=== PATIENT | male | born 1950 | race Caucasian/White ===

== ENCOUNTER → 2022-05-27 | Outpatient (CLI) | payer OTHER ==
--- NOTE | 2022-05-27 15:31 | MR ---
EXAMINATION TYPE: MR cspine/lspine wo con DATE OF EXAM: 05/27/2022 12:53 PM CLINICAL INDICATION:Male, 71 years old with history of G95.9 M54.16; COMPARISON: Radiographs 05/04/2022 TECHNIQUE: Multi planar, multi sequence imaging was performed utilizing: T1-weighted, T2-weighted, a nd turbo inversion recovery imaging of the cervical and lumbar spine. MR contrast: IV Contrast: None. FINDINGS: CERVICAL: Alignment: The cervical vertebral bodies have preserved heights. Alignment is within normal limits gi alisa patient positioning. Bones: Bone signal is within normal limits. Multilevel degenerative disc disease is noted and most p ronounced at the vertebral levels. Cord: The spinal cord is unremarkable with regards to their signal intensity and morphology. Discs: Multilevel disc desiccation is present. C2-C3: No significant disc pathology. The spinal canal is patent. No neural foraminal stenosis. C3-C4: No significant disc pathology. The spinal canal is patent. Bilateral facet and uncovertebral joint arthropathy are present with mild to moderate left an mild right neural foraminal stenosis. C4-C5: A disc osteophyte complex is present which minimally narrows the ventral subarachnoid space. Bilateral facet and uncovertebral joint arthropathy are present with severe left and mild right neur al foraminal stenosis. C5-C6: A disc osteophyte complex is present with mild to moderate spinal canal stenosis. Bilateral f acet and uncovertebral joint arthropathy are present with moderate bilateral neural foraminal stenosi s. C6-C7: Right central/foraminal disc protrusion or disc osteophyte complex with facet joint arthropath y which abuts the spinal cord on the right. Bilateral facet and uncovertebral joint arthropathy are present with moderate to severe right neural foraminal stenosis. The left neural foramen is patent. C7-T1: No significant disc pathology. The spinal canal is patent. No neural foraminal stenosis. Other: The coastal thickening in the left maxillary sinus. The lingual tonsils are enlarged. LUMBAR: Alignment: The lumbar vertebral bodies have preserved heights. There is straightening of the lumbar a lignment. Cord: The conus medullaris and the distal spinal cord appear unremarkable with regards to their signa l intensity and morphology. Bones/Discs: Scattered Modic endplate changes are noted throughout the lumbar spine. Multilevel dege nerative disc disease is noted and most pronounced at the L3-L4 and L4-L5. Multilevel disc desiccatio n is present. T12-L1 L1-L2: Disc bulging, ligamentum flavum buckling and facet joint arthropathy with mild spinal canal an d mild bilateral neural foraminal stenosis. L2-L3: Disc bulging with facet joint arthropathy with mild spinal canal and mild bilateral neural for aminal stenosis. L3-L4: Disc bulging with facet joint arthropathy with mild spinal canal and mild bilateral neural for aminal stenosis. L4-L5: Disc bulge, ligamentum flavum buckling with facet joint arthropathy and osteophyte formation r esult in severe spinal canal stenosis and severe bilateral neural foraminal stenosis. The cauda equin a is bunched together at this level. L5-S1: Disc bulge without significant spinal canal stenosis there is facet joint arthropathy with mil d bilateral neural foraminal stenosis. Other findings: Left high T2 signal renal cyst. IMPRESSION: 1. C5-C6 right central/foraminal herniation with superimposed osteoarthritic changes resulting in mo derate to severe neural foraminal stenosis. No multilevel left neural foraminal stenosis most pronoun riky at C4-C5 severe neural foraminal stenosis 2. L4-L5 severe spinal canal and bilateral neural foraminal stenosis.
== END | disposition home or self-care (01) ==
LOC: RADMRIMAIN 11:38
PROVIDERS: ATTEND Orthopaedic Surgery
DX: M48.061 Spinal stenosis, lumbar region without neurogenic claudication (principal); M48.02 Spinal stenosis, cervical region; M50.122 Cervical disc disorder at C5-C6 level with radiculopathy; M47.22 Other spondylosis with radiculopathy, cervical region; M99.71 Connective tissue and disc stenosis of intervertebral foramina of cervical region; M99.73 Connective tissue and disc stenosis of intervertebral foramina of lumbar region; G95.9 Disease of spinal cord, unspecified
CPT/HCPCS: 72141; 72148

== ENCOUNTER → 2022-07-10 | Outpatient (CLI) | payer OTHER ==
[2022-07-10 18:02] LABS: Basophils # (A) 0.05 X 10*3/uL (0.00-0.10); Basophils % (A) 0.7 %; Eosinophils # (A) 0.16 X 10*3/uL (0.04-0.35); Eosinophils % (A) 2.2 %; HCT 46.9 % (39.6-50.0); Immature Grans, Automated 0.8 %; Lymphocytes # (A) 1.61 X 10*3/uL (0.90-5.00); Lymphocytes % (A) 22.4 %; MCH 31.2 pg (27.0-32.0); MCV 97.5 fL (80.0-97.0); Monocytes # (A) 0.61 X 10*3/uL (0.20-1.00); Monocytes % (A) 8.5 %; NRBC Per 100 WBC 0 /100 WBCS (0.0-0.0); Neutrophils % (A) 65.4 %; Platelet Count 199 X 10*3/uL (140-440); RBC 4.81 X 10*6/uL (4.40-5.60); RDW 13.2 % (11.5-14.5); WBC 7.19 X 10*3/uL (4.50-10.00)
[2022-07-10 18:12] LABS: INR 0.93 (0.90-1.11); Prothrombin Time 10.5 sec (9.9-11.9)
[2022-07-10 19:32] LABS: African American GFR (CKD) 93.3 (60.0-200.0); BUN/Creat Ratio 18.59 Ratio (12.00-20.00); Blood Urea Nitrogen 17.4 mg/dL (9.0-27.0); Calcium 9.2 mg/dL (8.7-10.3); Carbon Dioxide 23.1 mmol/L (20.0-27.5); Non-African American GFR(CKD) 80.5 (60.0-200.0); Potassium 5.1 mmol/L (3.5-5.5)
== END | disposition home or self-care (01) ==
LOC: LABPAT 11:36
PROVIDERS: ATTEND Orthopaedic Surgery
DX: Z01.818 Encounter for other preprocedural examination (principal); I49.3 Ventricular premature depolarization; R94.31 Abnormal electrocardiogram [ECG] [EKG]; M47.816 Spondylosis without myelopathy or radiculopathy, lumbar region; M48.061 Spinal stenosis, lumbar region without neurogenic claudication; Z22.322 Carrier or suspected carrier of Methicillin resistant Staphylococcus aureus
CPT/HCPCS: 80048; 85025; 85610; 87070; 93005

== ENCOUNTER → 2023-06-01 | Outpatient (CLI) | payer OTHER ==
--- NOTE | 2023-06-01 12:23 | CT ---
EXAMINATION TYPE: CT cervical spine wo con DATE OF EXAM: 06/01/2023 COMPARISON: None HISTORY: Patient states that he has a compressed disc and that his balance has been off, denies neck pain CT DLP: 686.3 mGycm Automated exposure control for dose reduction was used. TECHNIQUE: CT scan of the cervical spine is obtained without contrast, axial images are obtained, sa gittal and coronal reformatted images are also reviewed. FINDINGS: The craniovertebral junction relationships and prevertebral soft tissues are normal. The cervical vertebral segments are normal in height and alignment and there is no fracture or sublux ation. The disc spaces are well-maintained in height from C2 through C5. There is mild disc space narrowing at C5-6 and C6-7 and C7/T1 levels. There is anterior spondylosis C4-T1. There is no significant bony encroachment of the cervical canal. There is advanced facet arthropathy at the C3-4, C4-5-6 level on the left resulting in severe bony ne ural foraminal encroachment at C5-6. There is moderate bony neural foraminal encroachment at the C7/T 1 level on the right. Paraspinal soft tissues are unremarkable. IMPRESSION: 1. No splenic C-spine fracture or malalignment. 2. Moderate degenerative disease in lower cervical spine as described. 3. Marked osteoarthritic change of the facet joints in the lower cervical spine on the left with bony neural foraminal encroachment as described above.
== END | disposition home or self-care (01) ==
LOC: RADCTMAIN 11:36
PROVIDERS: ATTEND Orthopaedic Surgery
DX: M47.812 Spondylosis without myelopathy or radiculopathy, cervical region (principal)
CPT/HCPCS: 72125

== ENCOUNTER → 2023-08-30 | Outpatient (CLI) | payer OTHER | END | disposition home or self-care (01) | LOC: LABPAT 11:22 | PROVIDERS: ATTEND Orthopaedic Surgery | DX: Z01.812 Encounter for preprocedural laboratory examination (principal); M50.20 Other cervical disc displacement, unspecified cervical region; M48.02 Spinal stenosis, cervical region; Z22.322 Carrier or suspected carrier of Methicillin resistant Staphylococcus aureus | CPT/HCPCS: 36415; 86850; 86900; 86901; 87070 ==

== ENCOUNTER 2023-09-06 10:17 | Day surgery (SDC) | payer OTHER ==
[2023-08-31 16:43] VITALS: BMI 42.5
--- NOTE | 2023-09-06 07:11 | P.HPOR ---
History of Present Illness H&P Date: 08/30/23 .D:Date: 08/30/23 : 10:46am .T:Title: *[facility] HISTORY AND PHYSICAL Age: 73 year Height: 5'11" Weight: 300 lbs BP:132/75 BMI: 39.05 kg/m2 Occupation: Retired VAS:0 Hand: Right IMPRESSION: It was my pleasure to have seen and examined Antonio.I reviewed the patient's clinical syndrome, physical findings, and imaging studies during the appointment today. It is my impression that the patient has a diagnosis of. 1. C5-6, C6-7 herniated nucleus pulposus with stenosis 2. Cervical myelopathy 3. Bilateral upper extremity radiculopathy I outlined the natural course history without intervention and various interventional options. Spine Surgery Risk Review Mr. Winn is presenting for evaluation of imbalance, bilateral upper extremity pain, numbness, and tingling, decreased hand dexterity bilaterally. It was my pleasure to have seen and examined Mr. Winn. In our visit today we have had a chance to go over subjective complaints, physical examination findings and treatments including the natural course history without intervention and various interventional options. The patients imaging demonstrates: [facility] from05/27/2023 of CervicalSpine: multilevel spondylotic changes with severe spondylosis C5 6 C6 7 with herniated nucleus pulposus causing bilateral foraminal and central stenosis. There is disc osteophyte complex which is noted at these levels as well concerning to the stenotic features. On top of this there is severe facet arthrosis throughout the cervical spine which also contributes to the stenosis specifically at C5 through C7. No acute fracture noted occipital cervical C1 2 joints are stable. No lesions. XRay Cervical multiview (Lateral, Flexion, Extension, AP, Oblique) 6 views taken at [facility] [place] on 05/04/23: - Re-reviewed with the patient today. Moderate multilevel spondylitic and degenerative changes with flattening of the normal lordosis. Multilevel diminished disc height, most pronounced C5-C6, C6- C7. Multilevel severe left foraminal stenosis and moderate right foraminal stenosis. vertebral body heights are preserved. No acute osseous abnormalities. MRI scancompleted at [facility] from05/27/22 of CervicalSpine: - Re-reviewed with the patient today. IMPRESSION: 1. C5-C6 right central/foraminal herniation with superimposed osteoarthritic changes resulting in moderate to severe neural foraminal stenosis. No multilevel left neural foraminal stenosis most pronounced at C4-C5 severe neural foraminal stenosis. On physical exam, Mr. Winn demonstrates: Continued concerns with frequent imbalance. He denies any falls since the time of his last office visit on 05/04/2023. The patient denies experiencing any neck pain at this time. He does note intermittent pain throughout the bilateral upper extremities, associated with numbness and tingling. He does note some mildly decreased hand dexterity bilaterally as well. He states his main concern at this time is the imbalance, which has remained relatively constant over the last several months. The patient states his upper extremity symptoms are exacerbated by any pulling or pushing movements. I have explained to the patient that as their condition progresses it will cause further neurological deficits and eventual paralysis. Based on the patients imaging, physical exam, and the rapid progression and disabling nature of their symptoms, at this time I recommend surgery in the form of a: C5-7 ACDF. I discussed the risk and benefits of this procedure at length with Mr. Winn. The patient agreed to considered pursuing the procedure abovementioned. Prior to surgery, she should follow up with her PCP (Cardio, ID, IM etc) for clearance. Questions were invited and answered, and the patient wishes to proceed as outlined below. Currently, I am recommendin.C5-7 anterior cervical discectomy and fusion 2.Review of surgical risks and benefits as well as an educational packet on the proposed surgical procedure. Risks: All surgical procedures come with inherent risks, including those related to positioning, anesthesia, intraoperative findings, and postoperative complicati ons. It is important to understand that surgery does not come with any guarantee of a successful outcome as complications and adverse events are always possible. The patient was given a handout in office today discussing the surgical procedure and risks associated with the intervention, both of which were discussed with the patient. These risks include but are not limited to the following: * Experiencing same, different or even worse symptoms in back, neck, arms, or legs compared to before surgery. Requiring further surgery or other forms of treatment presently or at some time in the future at same or other levels of the intended spine surgery. On an extreme but fortunately relatively rare basis severe complication such as blindness, stroke, heart attack, temporary and/or permanent nerve injury, paralysis, coma, or may occur, sometimes without known explanation. Surgical complications may include but are not limited to risk of infection, fluid accumulation in the surgical dissection site, including a seroma or hematoma, that requires additional surgery, wound drainage, bleeding, new numbness or weakness, vision changes/loss, spinal fluid leakage, non-healing and/or infected incision, headaches, difficulty or inability to swallow, hoarseness, hemopneumothorax, pneumothorax, impotence, retrograde ejaculation, vaginal dryness; injury to nerves, spinal cord, blood vessels, lymphatics or other vital organs (i.e., bowel injury, injury to the great vessels); heterotopic bone formation; complications related to the hardware such as screws, rods, cages including misplaced hardware, device failure, instrumentation at the wrong spine level, hardware fracture/breakage, or hardware loosening; vertebral failure of the spinal column above or below the newly placed hardware; retained surgical instrumentations or devices and the need for further surgery. * Medical risks of the planned spine surgery include but are not limited to generalized Infections to the whole body or local areas outside of the surgical site (sepsis), heart attack, bleeding, anaphylaxis, meningitis, seizure, epilepsy, hearing loss, burn martin, laceration of the head or other areas of the body, bruising, hypersensitivity of the skin, bladder over distension; allergic reaction; shoulder injury related to positioning; fat, blood and air clots to other areas of the body like heart, lungs, brain; failure of internal organs such as lungs, kidneys, liver and excessive bleeding. If blood transfusions are necessary, note that transfusions may cause intolerance reactions such as anaphylaxis or other complex reactions. Despite best efforts, the results of spine surgery might not heal in terms of bone, soft tissues such as skin, fascia, ligaments, and joints. Additionally, in order to achieve best possible results, spine surgery may be carried out beyond the initially planned levels and involve decompression, fusion including insertion of hardware at levels other than the original intended area of surgical interest change some portions of the procedure in order to ensure the best possible outcomes. With spine surgery and spinal fusion, there are different off label uses of instrumentation (devices, implants and hardware) as well as biological substances (bone morphogenic proteins, demineralized bone matrix) as well as using extra bone from allograft sources (i.e. cadaver bone) or autograft (iliac crest bone, ribs, or the spine itself). The patient has been given information about these practices and their inherent risks and benefits. [facility] is an educational center that serves as a training facility for neurosurgical and orthopedic SEXUAL HEALTH PHYSICIAN and Nursing students. Physician assistants are medically trained surgical providers who function in the outpatient, inpa tient, and operating room setting under the direct supervision of the attending surgeon. [facility] has multiple operating rooms with single and overlapping rooms running daily. They currently function under the required guidelines as produced by the [facility] Finance Committee with regards to the overlapping rooms and will continue to comply with changes to this policy as they occur. The requirements include and are complied with as follows: (1) the critical portions of the overlapping rooms will not occur at the same time, (2) the attending physician will be physically present during the critical portions of the procedure and immediately available during the entire case, and (3) a back-up attending is designated should the primary attending not be immediately available. The patient has had a chance to review all the listed information, has been given print outs detailing this information, and has had all his/her questions answered to their satisfaction. It was my pleasure to have seen and examined Mr. Winn. In our visit today we have had a chance to go over my understanding of our patient's current condition, the natural course history without intervention and various interventional options. Questions were invited and answered, and the patient wishes to proceed as outlined above. I have seen and examined the patient for 25 minutes and we have spent more than 50% of the time in repeat and detailed counseling about the patient's condition, its natural course history with out and as much as can be predicted with surgery and re-review of various surgical treatment options. In conclusion, Mr. Winn requested we proceed with the above suggested surgery and are willing to accept risks and limitations of the suggested surgery as nature of the disease process and our best attempts at treatment for the condition. Thank you again for allowing us to be part of your patient's care. Please don't hesitate to contact me if you have any further questions. FOLLOW UP: Post Procedure PLAN AT NEXT VISIT: X-RAYS (AP/LAT) CERVICAL SPINE PATIENT EDUCATION: Medications Reviewed: YES In our visit today Mr. Winn and I have had a chance to go over my understanding of the patient's current condition, the natural course history without intervention and various interventional options. Questions were invited and answered, and the patient wishes to proceed as outlined above. I will be sure to keep you updated after Mr. Winn returns here for further follow-up. Thank you again for your referral. Please do not hesitate to contact me if you have any further questions. Signed and authenticated by: Jovon Moreira [facility] [address] [facility], [address] [address] This message is confidential, intended only for the named recipient(s) and may contain information that is privileged or exempt from disclosure under applicable law. If you are not the intended recipient(s), you are notified that the dissemination, distribution or copying of this information is strictly prohibited. If you received this message in error, please notify the sender then delete this message. Past Medical History Past Medical History: Cancer, Hyperlipidemia, Hypertension, Musculoskeletal Disorder, Osteoarthritis (OA) Additional Past Medical History / Comment(s): POOR BALANCE - STATES HE IS SHAKEY WHEN WALKING., SKIN CA. , HEARING AIDS. History of Any Multi-Drug Resistant Organisms: None Reported Past Surgical History: Appendectomy, Hernia Repair, Joint Replacement Additional Past Surgical History / Comment(s): TOTAL RIGHT HIP, . FX JAW REPAIR., CATARACTS Past Anesthesia/Blood Transfusion Reactions: No Reported Reaction Past Psychological History: No Psychological Hx Reported Smoking Status: Former smoker Past Alcohol Use History: None Reported Additional Past Alcohol Use History / Comment(s): QUIT SMOKING 1988., SMOKED 20 YEARS, 1 1/2 PPD Past Drug Use History: None Reported - Past Family History Father Sister(s) Family Medical History: Cancer Additional Family Medical History / Comment(s): PTS SISTER HAD BREAST CANCER Medications and Allergies Home Medications Medication Instructions Recorded Confirmed Type Naproxen 500 mg PO Q12HR PRN 04/20/16 08/31/23 History Pravastatin Sodium [Pravachol] 40 mg PO HS 04/20/16 08/31/23 History lisinopriL [Zestril] 20 mg PO QAM 04/20/16 08/31/23 History methocarbamoL [Robaxin] 750 mg PO BID 04/20/16 08/31/23 History Ergocalciferol [Vitamin D2 (1250 1,250 mcg PO WEEKLY 08/31/23 08/31/23 History Mcg = [id number] Iu)] Allergies Allergy/AdvReac Type Severity Reaction Status Date / Time No Known Allergies Allergy Verified 08/31/23 15:50 Physical Examination Osteopathic Statement: *. No significant issues noted on an osteopathic structural exam other than those noted in the History and Physical/Consult.
[~2023-09-06 10:17] MED LIST: HYDROmorphone 0.5 MG/0.5 ML SYRINGE IVP PRN; LIDOCAINE 1% (10MG/ML) FOR IV START INTRADERMA PRN; MIDAZOLAM 2 MG/2 ML VIAL IV PRN; ONDANSETRON 4 MG/2 ML VIAL IVP PRN; TRANEXAMIC 1,000 MG/100ML-NACL 1,000 MG in SALINE 1 100ML.BAG IVPB PRN
[2023-09-06] MEDS: GABAPENTIN 300 MG CAP PO PRN (10:50)
[2023-09-06] MEDS: ACETAMINOPHEN TAB 500 MG TAB PO PRN (10:50)
[2023-09-06] MEDS: LACTATED RINGERS 1,000 ML IV SCH (11:04)
[2023-09-06] MEDS: DEXAMETHASONE SOD PHOSPHATE 4 MG/ML 1 ML VIAL IV ONE (11:06)
[2023-09-06] MEDS: ONDANSETRON 4 MG/2 ML VIAL IVP ONE (11:07)
[2023-09-06] MEDS ORDERED: LIDOCAINE 1% INJ 10MG/ML (20 ML MDV) ONE (12:31)
[2023-09-06] MEDS ORDERED: MIDAZOLAM 2 MG/2 ML VIAL ONE (12:31)
[2023-09-06] MEDS ORDERED: fentaNYL (PF) 50 MCG/ML 2 ML AMP ONE (12:31)
[2023-09-06] MEDS ORDERED: SUCCINYLCHOLINE CHLORIDE 200 MG/10 ML VIAL IV ONE (12:31)
[2023-09-06] MEDS ORDERED: PHENYLEPHRINE 10 MG/ML VIAL ONE (12:31)
[2023-09-06] MEDS ORDERED: ePHEDrine 50 MG/ML 1 ML VIAL ONE (12:31)
[2023-09-06] MEDS ORDERED: TRANEXAMIC 1,000 MG/100ML-NACL PREMIX BAG ONE (12:31)
[2023-09-06] MEDS ORDERED: NEOSTIGMINE 1 MG/ML 10 ML VIAL ONE (12:31)
[2023-09-06] MEDS ORDERED: PROPOFOL 10 MG/ML 20 ML VIAL IV ONE (12:31)
[2023-09-06] MEDS ORDERED: HYDROmorphone (PF) 1 MG/ML ONE (12:31)
[2023-09-06] MEDS ORDERED: GLYCOPYRROLATE 0.2 MG/ML 2 ML VIAL ONE (12:31)
[2023-09-06] MEDS ORDERED: ROCURONIUM 10 MG/ML (5 ML VIAL) IV ONE (12:31)
[2023-09-06] MEDS: ceFAZolin 3 GM in SODIUM CHLORIDE 0.9% 100 ML IVPB PRN (12:34)
[2023-09-06] MEDS: VANCOMYCIN 1,000 MG VIAL MISCELLANE ONE (13:44)
[2023-09-06] MEDS: GELATIN SPONGE,ABSORB (LARGE) 1 EACH SPONGE MISCELLANE ONE (13:45)
[2023-09-06] MEDS: THROMBIN (BOVINE) 5,000 UNIT VIAL MISCELLANE ONE (13:45)
[2023-09-06] MEDS: LACTATED RINGERS 1,000 ML IV ONE (14:09)
[2023-09-06] MEDS ORDERED: HYDROmorphone 1 MG/ML 1 ML SYRINGE IVP PRN (14:55)
[2023-09-06] MEDS ORDERED: MAGNESIUM HYDROXIDE 2,400 MG/30 ML CUP PO PRN (14:55)
[2023-09-06] MEDS ORDERED: HYDROcodone/APAP 5-325MG 1 EACH TAB PO PRN (14:55)
[2023-09-06] MEDS ORDERED: SENNOSIDES-DOCUSATE SODIUM 1 EACH TAB PO PRN (14:55)
--- NOTE | 2023-09-06 14:58 | P.OP ---
Date of Procedure: 09/06/23 Preoperative Diagnosis: Current Active Problems Herniated nucleus pulposus, C5-6 (Acute) Herniated nucleus pulposus, C6-7 (Acute) Cervical myelopathy with cervical radiculopathy (Acute) Cervical spinal stenosis (Acute) Bilateral arm weakness (Acute) Postoperative Diagnosis: Current Active Problems Herniated nucleus pulposus, C5-6 (Acute) Herniated nucleus pulposus, C6-7 (Acute) Cervical myelopathy with cervical radiculopathy (Acute) Cervical spinal stenosis (Acute) Bilateral arm weakness (Acute) Procedure(s) Performed: 1. C5-6 ANTERIOR CERVICAL ARTHRODESIS 2. C6-7 ANTERIOR CERVICAL ARTHRODESIS 3. C5-7 ANTERIOR CERVICAL INSTRUMENTATION 4. C5-6 AND C6-7 INSERTION OF BIOMECHANICAL DEVICE, CAGE USE OF IONM USE OF IO MICROSCOPE CODES: 93276, 64240, 23334, [id number] Implants: 4 [employer] ANTERIOR CERVICAL SYSTEM 9MM 7 DEG CAGES 16MM SCREW CONSTRUCT Anesthesia: GETA Surgeon: Jovon Urrutia Bank Analyst #1: Diony Cameron (WAS PRESENT AND ASSISTED WITH ALL ASPECTS OF THE CASE FROM POSITION TO CLOSURE) Estimated Blood Loss (ml): 25 IV fluids (ml): 1,200 Urine output (ml): 300 Pathology: none sent Condition: stable Disposition: PACU Indications for Procedure: Mr. Winn is presenting for evaluation of imbalance, bilateral upper extremity pain, numbness, and tingling, decreased hand dexterity bilaterally. It was my pleasure to have seen and examined Mr. Winn. In our visit today we have had a chance to go over subjective complaints, physical examination findings and treatments including the natural course history without intervention and various interventional options. The patients imaging demonstrates: [facility] from05[facility]27[facility]2023 of CervicalSpine: multilevel spondylotic changes with severe spondylosis C5 6 C6 7 with herniated nucleus pulposus causing bilateral foraminal and central stenosis. There is disc osteophyte complex which is noted at these levels as well concerning to the stenotic features. On top of this there is severe facet arthrosis throughout the cervical spine which also contributes to the stenosis specifically at C5 through C7. No acute fracture noted occipital cervical C1 2 joints are stable. No lesions. XRay Cervical multiview (Lateral, Flexion, Extension, AP, Oblique) 6 views taken at [facility] on 05/04/23: - Re-reviewed with the patient today. Moderate multilevel spondylitic and degenerative changes with flattening of the normal lordosis. Multilevel diminished disc height, most pronounced C5-C6, C6- C7. Multilevel severe left foraminal stenosis and moderate right foraminal sten osis. vertebral body heights are preserved. No acute osseous abnormalities. MRI scancompleted at [facility] from05/27/22 of CervicalSpine: - Re-reviewed with the patient today. IMPRESSION: 1. C5-C6 right central/foraminal herniation with superimposed osteoarthritic changes resulting in moderate to severe neural foraminal stenosis. No multilevel left neural foraminal stenosis most pronounced at C4-C5 severe neural foraminal stenosis. On physical exam, Mr. Winn demonstrates: Continued concerns with frequent imbalance. He denies any falls since the time of his last office visit on 05/04/2023. The patient denies experiencing any neck pain at this time. He does note intermittent pain throughout the bilateral upper extremities, associated with numbness and tingling. He does note some mildly decreased hand dexterity bilaterally as well. He states his main concern at this time is the imbalance, which has remained relatively constant over the last several months. The patient states his upper extremity symptoms are exacerbated by any pulling or pushing movements. I have explained to the patient that as their condition progresses it will cause further neurological deficits and eventual paralysis. Based on the patients imaging, physical exam, and the rapid progression and disabling nature of their symptoms, at this time I recommend surgery in the form of a: C5-7 ACDF. I discussed the risk and benefits of this procedure at length with Mr. Winn. The patient agreed to considered pursuing the procedure abovementioned. Prior to surgery, she should follow up with her PCP (Cardio, ID, IM etc) for clearance. Questions were invited and answered, and the patient wishes to proceed as outlined below. Currently, I am recommendin.C5-7 anterior cervical discectomy and fusion Description of Procedure: C5-7 ACDF The patient was seen and examined in the preoperative area. All preoperative protocols were followed. Informed consent was obtained, risks and benefits of the procedure were discussed at length. Risks including bleeding infection damage to the surrounding tissue and risk of reoperation were discussed with the patient. Risk of anesthesia up to and including was discussed with the patient. These are outlined in the risk review. They were willing to accept these risks and all the risks of surgery. The patient was given a weight-based dose of antibiotics in the form of 2 g Ancef. The patient was seen and evaluated by the anesthesia team who deemed them fit for surgery. The site was marked, the patient was willing to proceed with the procedure. The patient was transferred to the operative suite by the Department of anesthesia. They were then drifted off to sleep by the department anesthesia and GETA was performed. The patient tolerated this well. Sanchez catheter was placed by nursing staff, a-traumatically. Once confirmation of lines and ventilation the patient was transferred to a Supine Geoff table very carefully. All bony prominences including wrists, elbows, axilla, chest, hips, and thighs, and feet were padded very well. Special attention was paid to the genitalia, and these were padded accordingly. SCDs were placed on bilateral lower extremities and were connected. Arms were well padded and placed at their side thumbs up. Once in position, again we confirmed good ventilation capabi lities and that lines were running appropriately. The patients Cervical spine was then exposed. 1010s were placed outlining the incision site. Standard alcohol was used to clean the incision site and allowed to dry. C-arm was used to bio-aline the patient and confirm level for incision which was marked with a skin marker. Operative briefing was performed with all teams and everyone in agreement to proceed. The patient was then prepped and draped in a normal sterile fashion. Timeout was then performed, and all parties agreed with the procedure to be performed. Transverse skin incision was then made on the right side of the patient's neck 3 cm and dissection taken down to the platysma which was split transversely. Sub platysma flap was made, and interval identified between SCM and medial structures. Omohyoid was visualized and protected. Blunt dissection taken down to the anterior cervical fascia which was identified. Blunt probe was then placed and lateral image taken which confirmed levels for operation. These levels were then marked with a bovi. Subperiosteal dissection of the longissimus muscles were then done over these levels identifying uncovertebral joints bilaterally. Retractor was then placed deep to these muscles and held in place with a bed arm. Starting at C6-7, Flomot pins were placed into C6 and C7 and gentle distraction taken out over the levels. Jessica rongeur used to remove disc material. Operating microscope brought in for visualization. Complete discectomy performed at this level with curette, rongure and pituitary. High speed kip used to remove osteophytes anteriorly and posteriorly until PLL was identified. 6-0 up curette then used to identify the canal and resect the PLL. 2-0 and 3-0 Kerrison used then to remove PLL and disc herniation and performed b/l foraminotomies. Once good decompression was accomplished, meticulous hemostasis was performed. Sizers were then placed under lateral fluoroscopy until the desired height and lordosis. Cage was then selected, packed with autograft and allograft and placed under lateral imaging. Once in good position it was tested and stable. Motors run before and after cage placement were stable. The wound was irrigated, and autograft placed lateral to the cage anteriorly for fusion. Flomot pin was then removed from C7 and placed into C5. Gentle distraction taken out over C5-6 now. Complete discectomy done at C5-6 as described including decompression, b/l foraminotomies and PLL resection. Burring of endplates was minimal, osteophytes removed as described. Spacers wer e then sized and placed under lateral imaging. Cage selected, packed with graft and placed under lateral images. Once in position, meticulous hemostasis performed, and motors remained stable before and after cage placement. AP image confirmed good placement of cages. Wound was irrigated. Anterior instrumentation was then placed from C5-6 and C6-7. Fixed screws drilled into C7 and screws placed. Then into C6 and finally C5. All locking mechanisms were set, and all screws had good purchase. Final AP and lateral images taken confirmed good placement of hardware and good reduction and oriental orthodox of height. The wound was then irrigated copiously with NSS. Surgicel placed deep in the wound. A deep drain placed out a separate incision and sewed into place. Layered closure then performed with 3-0 Vicryl in the platysma and subQ tissue. 4-0 Strata fix in the subcuticular tissue. The wound was then cleaned, and dried and skin glue placed. Once glue dried on Opifoam was placed. The patient was then transferred back to their hospital bed a-traumatically. The drain continued to hold suction. They were placed in a soft collar. They were then awakened by the department of anesthesia having tolerated the procedure well without complications.
--- NOTE | 2023-09-06 15:36 | FL ---
EXAMINATION TYPE: FL guidance operating room, XR cervical spine limited Intraoperative/procedural flu oroscopic services were provided. Total fluoroscopy time is 19 seconds with submitted images to PACS. Please see the operative/procedural note for further details. DAP: [id number]
--- NOTE | 2023-09-06 16:52 | P.CONS ---
History of Present Illness - Reason for Consult Consult date: 09/06/23 HTN Requesting physician: Jovon Urrutia - Chief Complaint neck pain - History of Present Illness Patient is a 73-year-old male with a past medical history of hypertension, d yslipidemia, BPH, impaired fasting glucose (A1c 5.8 07/05/2023) for ACDF. Patient tolerated the procedure well without any immediate postoperative complications. Patient seen and examined at bedside. He complains of pain in the cervical spine. He denies any shortness of breath, difficulty swallowing. No chest pain. No lightheadedness, dizziness, nausea. He had a cold a few weeks ago but is fully resolved. He is supposed to use a cane at home but does not. He has no other complaints currently. Vital signs reviewed General: nontoxic, no distress, appears at stated age, hard cervical collar in place Derm: warm, dry ENT: Nose and ears atraumatic Cardiovascular: S1S2 reg, no murmur, no edema Lungs: clear to auscultation bilateral, no rhonchi, no rales, no wheeze, no accessory muscle use Abdominal: soft, nontender to palpation, no guarding Ext: no gross muscle atrophy, no contractures Neuro: CN II-XII grossly intact, No focal neuro deficits Psych: Alert, oriented, appropriate affect Assessment/Plan: Patient is a 73-year-old male status post C5-6 and C6-7 ACDF. Hypertension -Lisinopril 20 mg daily -Follow blood pressures Dyslipidemia -Pravachol 40 mg at night BPH -Not currently on medications. Will monitor closely. Was on both him and Flomax in the past. States he is trying to figure out what is going on with his urologist. That is why he is off of both of these currently. Obesity with BMI of 42.9 -Outpatient structured weight loss Impaired fasting glucose -Check a.m. fasting blood sugar Imaging: None new Data Review: Preop blood work reviewed revealing hemoglobin 15 with hematocrit 48.6, creatinine 0.9 Thank you for allowing us to participate in the care of this pleasant patient. Do not hesitate to contact us with questions. Someone can be reached from the [facility] hospitalist group all hours of the day at [phone] or via [facility]. This dictation was prepared using Session[employer] voice recognition software. Though every attempt is made to correct errors during dictation some may still exist. Past Medical History Past Medical History: Cancer, Hyperlipidemia, Hypertension, Musculoskeletal Disorder, Osteoarthritis (OA) Additional Past Medical History / Comment(s): POOR BALANCE - STATES HE IS SHAKEY WHEN WALKING., SKIN CA. , HEARING AIDS, BPH History of Any Multi-Drug Resistant Organisms: None Reported Past Surgical History: Appendectomy, Hernia Repair, Joint Replacement Additional Past Surgical History / Comment(s): TOTAL RIGHT HIP, . FX JAW REPAIR., CATARACTS Past Anesthesia/Blood Transfusion Reactions: No Reported Reaction Past Psychological History: No Psychological Hx Reported Smoking Status: Former smoker Past Alcohol Use History: None Reported Additional Past Alcohol Use History / Comment(s): QUIT SMOKING 1988., SMOKED 20 YEARS, 1 1/2 PPD Past Drug Use History: None Reported - Past Family History Father Sister(s) Family Medical History: Cancer Additional Family Medical History / Comment(s): PTS SISTER HAD BREAST CANCER Medications and Allergies Home Medications Medication Instructions Recorded Confirmed Type Naproxen 500 mg PO Q12HR PRN 04/20/16 09/06/23 History Pravastatin Sodium [Pravachol] 40 mg PO HS 04/20/16 09/06/23 History lisinopriL [Zestril] 20 mg PO QAM 04/20/16 09/06/23 History methocarbamoL [Robaxin] 750 mg PO BID 04/20/16 09/06/23 History Ergocalciferol [Vitamin D2 (1250 1,250 mcg PO WEEKLY 08/31/23 09/06/23 History Mcg = [id number] Iu)] Allergies Allergy/AdvReac Type Severity Reaction Status Date / Time No Known Allergies Allergy Verified 09/06/23 10:37 Physical Exam Osteopathic Statement: *. No significant issues noted on an osteopathic structural exam other than those noted in the History and Physical/Consult. Vitals: Vital Signs Temp Pulse Resp BP Pulse Ox 09/06/23 16:00 76 16 124/60 95 09/06/23 15:45 70 16 119/59 95 09/06/23 15:30 77 16 110/61 95 09/06/23 15:15 71 16 123/58 95 09/06/23 15:10 97.1 F L 75 16 116/59 96 09/06/23 10:44 97.1 F L 67 16 144/71 94 L Intake and Output 09/06/23 09/06/23 09/06/23 06:59 14:59 22:59 Intake Total 1600 0 Output Total 375 Balance 1225 0 Intake: IV 1600 0 Output: Urine 350 Estimated Blood Loss 25 Other: Weight 139.6 kg 139.6 kg
[2023-09-06] MEDS: GABAPENTIN 300 MG CAP PO SCH (17:07)
[2023-09-06] MEDS: ACETAMINOPHEN TAB 325 MG TAB PO SCH (17:07)
--- NOTE | 2023-09-06 18:57 | CT ---
EXAMINATION TYPE: CT cervical spine wo con DATE OF EXAM: 09/06/2023 COMPARISON: 06/01/2023 HISTORY: 73-year-old male s/p C5-C7 ACDF TECHNIQUE: Contiguous axial scanning of the cervical spine without IV contrast. Coronal and sagittal reconstructions performed. CT DLP: 703.4 mGycm Automated exposure control for dose reduction was used. FINDINGS: No pericervical junction of the body, predental space widening, or prevertebral soft tissue swelling. Degenerative change C1 dens articulation. Interval placement of C5-C7 ACDF. There is bridging anterior endplate spondylosis C7-T1. Hardware appears appropriate position. Prevertebral and anterior neck soft tissue air related to rece nt operation. Moderate to severe mucosal thickening throughout the left maxillary sinus and leftward nasal septal d eviation. There is multilevel moderate to advanced facet and uncovertebral joint arthropathy especially mid and lower cervical spine. Mild degenerative disc disease and endplate spondylosis in the nonfused mid ce rvical spine. At C3-C4, there is moderate to severe left neuroforaminal stenosis. At C4-C5, there is moderate left neuroforaminal stenosis. At C5-C6, [id number] left neuroforaminal stenosis. At C6/C7, moderate right greater than left neural foraminal stenosis. IMPRESSION: 1. RECENT POSTOPERATIVE CHANGES OF C5-C7 ACDF. ADDITIONAL BRIDGING ANTERIOR ENDPLATE SPONDYLOSIS C7-T 1 IS ESSENTIALLY RESULTS IN A FUSION FROM C5 DOWN THROUGH T1. 2. MODERATE TO ADVANCED SPONDYLITIC CHANGE WITH NEURAL FORAMINAL STENOSES OUTLINED ABOVE.
[2023-09-06] MEDS: HYDROmorphone 0.5 MG/0.5 ML SYRINGE IVP PRN (19:19)
[2023-09-06] MEDS: HYDROcodone/APAP 10-325MG 1 EACH TAB PO PRN (20:29)
[2023-09-06] MEDS: PRAVASTATIN SODIUM 40 MG TAB PO SCH (20:30)
[2023-09-06] MEDS: ceFAZolin 3 GM in SODIUM CHLORIDE 0.9% 100 ML IVPB SCH (20:49)
[2023-09-06] MEDS: methocarbamoL 750 MG TAB PO PRN (20:49)
[2023-09-07] MEDS: HYDROcodone/APAP 5-325MG 1 EACH TAB PO PRN (03:11)
[2023-09-07 08:18] LABS: HCT 48.2 % (39.0-53.0); HGB 15.8 gm/dL (13.0-17.5); MCH 32.4 pg (25.0-35.0); MCHC 32.7 g/dL (31.0-37.0); MCV 99.1 fL (80.0-100.0); Mean Platelet Volume 8.1; Platelet Count 213 k/uL (150-450); RBC 4.86 m/uL (4.30-5.90); RDW 13.2 % (11.5-15.5); WBC 13.7 k/uL (3.8-10.6)
[2023-09-07 08:30] LABS: African American GFR (CKD) >90 (>60 ml/min/1.73 sqM); Anion Gap 8 mmol/L; Blood Urea Nitrogen 12 mg/dL (9-20); Carbon Dioxide 30 mmol/L (22-30); Chloride 101 mmol/L (98-107); Glucose 124 mg/dL (74-99); Non-African American GFR(CKD) >90 (>60 ml/min/1.73 sqM); Potassium 4.4 mmol/L (3.5-5.1); Sodium 139 mmol/L (137-145)
[2023-09-07 09:11] VITALS: BP 116/68; PULSE 86; RESP 18; TEMP 99.4
[2023-09-07] MEDS: SENNOSIDES-DOCUSATE SODIUM 1 EACH TAB PO SCH (09:11)
[2023-09-07] MEDS: lisinopriL 20 MG TAB PO SCH (09:11)
--- NOTE | 2023-09-07 09:36 | P.PN ---
Subjective Progress Note Date: 09/07/23 Principal diagnosis: 1. C5-6, C6-7 herniated nucleus pulposus with stenosis 2. Cervical myelopathy 3. Bilateral upper extremity radiculopathy The patient seen and examined this point. Patient is sitting upright in bed. He does report that his pain is managed on current regimen. Surgical incision to the anterior cervical spine as well approximate with glue intact. SKY drain was discontinued this morning and new surgical dressing applied. Hard cervical collar is intact. Patient continues to report numbness to the right fingertips w hich was present prior to procedure. Patient reports that he feels comfortable and safe going home today. No acute concerns at this time. Objective - Vital Signs Vital signs: Vital Signs Temp 99.4 F 09/07/23 07:39 Pulse 86 09/07/23 07:39 Resp 18 09/07/23 07:39 BP 116/68 09/07/23 07:39 Pulse Ox 96 09/07/23 08:19 FiO2 Intake & Output 09/06/23 09/07/23 09/07/23 18:59 06:59 18:59 Intake Total 1600 Output Total 375 605 Balance 1225 -605 Weight 139.6 kg Intake: IV 1600 Output: Drainage 5 Neck 5 Urine 350 600 Estimated Blood Loss 25 Other: Voiding Method Indwelling Catheter # Voids 0 - Exam Physical Examination General: The patient is awake and alert, in no acute distress Skin: Skin is warm and dry with no obvious rashes or lesions. Surgical incision to the anterior cervical spine, edges are well approximated with clue intact. SKY drain was removed and new surgical dressing applied. Eye: Pupils are equal, round and reactive to light, extra-ocular movements are intact; there is normal conjunctiva bilaterally. Neck: The neck is supple, there is mild tenderness and limited range of motion due to surgical intervention and hard cervical collar intact. Cardiovascular: There is a regular rate and rhythm. No murmur, rub or gallop is appreciated. Respiratory: Lungs are clear to auscultation, respirations are non-labored, b reath sounds are equal. Gastrointestinal: Soft, non-distended, non-tender abdomen. Back: There is no tenderness to palpation in the midline, paralumbar, parathoracic or buttocks region. There is no obvious deformity . Musculoskeletal: ROM limited secondary to pain and stiffness from surgical p rocedure. Muscle strength in all major muscle groups of bilateral upper extremities 4/5, bilateral lower extremities 5/5. Neurological: CN 2-12 intact. There are no obvious motor or sensory deficits. Movement and coordination equal and intact. Sensory exam to light touch intact C5-T1 and intact from L2-S1. Reflexes 2/4 in bilateral upper and lower extremities. Negative Hoffmans, babinski, and clonus signs. Psychiatric: Cooperative, appropriate mood & affect, normal judgment. - Labs CBC & Chem 7: 09/07/23 07:49 09/07/23 07:49 Labs: Abnormal Lab Results - Last 24 Hours (Table) 09/07/23 09/07/23 Range/Units 07:49 07:49 WBC 13.7 H (3.8-10.6) k/uL Glucose 124 H (74-99) mg/dL Assessment and Plan Assessment: Postop day 1: C5-C7 ACDF 1. C5-6, C6-7 herniated nucleus pulposus with stenosis 2. Cervical myelopathy 3. Bilateral upper extremity radiculopathy Plan: -Appreciate security and privacy consultant and team management. -Activity: Ambulate QID, OOB all meals, up and about, limit lifting bending twis ting to less than 5 lbs. Use walker or cane if needed for stability. -Daily PT/OT, increase ambulation strength and balance. -Hard cervical collar to be worn at all times, do not wear and shower and not needed in chair -Pain control: Adequate at this time -Meds: reviewed -GI ppx: senna, Miralax -DC morales -DVT PPX: OK to restart Heparin tonight -Hygiene: Shower today. Maintain dressing clean and dry. -Encourage IS 10x/hr -Dispo: Discharge home today *I reviewed and discussed this case with my attending Dr. Urrutia, whom has reviewed this chart and films and is in agreement with assessment and plan of care as outlined above. I have personally seen and examined the patient, performed the documentation and the assessment and plan as written. Number of minutes spent on the visit: 20m.
--- NOTE | 2023-09-07 09:51 | P.DS ---
Providers Date of admission: 09/06/23 Expected date of discharge: 09/07/23 Attending physician: Jovon Urrutia DO Consults: 09/06/23 14:55 Consult Physician Routine Consulting Provider: Lainey Sharpe Consult Reason/Comments: medical management s/p C5-C7 ACDF Do you want consulting provider notified?: Yes Primary care physician: [facility] Hospital Course: Hospital Course: The patient was evaluated preoperatively and found to have the diagnosis of cervical spondylosis with HNP. They underwent appropriate preoperative care and were willing to undergo the intended procedure. They underwent a successful C5- C7 ACDF, were recovered appropriately and sent to the floor. While on the floor they worked with physical therapy, occupational therapy and nursing to enhance their recovery experience. Their pain was well controlled through their stay and they were started on appropriate medications, DVT ppx modalities, activity and dietary needs. Daily labs were monitored closely, and transfusions were only used when necessary. Medicine as well as other consulting services have made their input and have helped with our team approach and multidisciplinary care. PT milestones have been met and passed and they have made the recommendation of home for this patient and treating providers agree with this care path. The patient will be discharged home with appropriate medications, instructions and follow-up information and in stable condition. Patient Condition at Discharge: Good Plan - Discharge Summary Discharge Rx Participant: No New Discharge Prescriptions: New cefaDROXiL [Duricef] 500 mg PO Q12HR #10 cap Gabapentin 300 mg PO TID #90 cap HYDROcodone/APAP 10-325MG [[place] 10-325] 1 tab PO Q4-6H PRN #42 tab PRN Reason: Pain Sennosides/Docusate Sodium [Senna Plus 8.6-50 mg Tablet] 1 each PO DAILY PRN #20 tablet PRN Reason: Constipation No Action Naproxen 500 mg PO Q12HR PRN PRN Reason: Pain lisinopriL [Zestril] 20 mg PO QAM Pravastatin Sodium [Pravachol] 40 mg PO HS methocarbamoL [Robaxin] 750 mg PO BID Ergocalciferol [Vitamin D2 (1250 Mcg = 93276 Iu)] 1,250 mcg PO WEEKLY Discharge Medication List Naproxen 500 mg PO Q12HR PRN 04/20/16 [History] Pravastatin Sodium [Pravachol] 40 mg PO HS 04/20/16 [History] lisinopriL [Zestril] 20 mg PO QAM 04/20/16 [History] methocarbamoL [Robaxin] 750 mg PO BID 04/20/16 [History] Ergocalciferol [Vitamin D2 (1250 Mcg = 10749 Iu)] 1,250 mcg PO WEEKLY 08/31/23 [History] Gabapentin 300 mg PO TID #90 cap 09/07/23 [Rx] HYDROcodone/APAP 10-325MG [[place] 10-325] 1 tab PO Q4-6H PRN #42 tab 09/07/23 [Rx] Sennosides/Docusate Sodium [Senna Plus 8.6-50 mg Tablet] 1 each PO DAILY PRN #20 tablet 09/07/23 [Rx] cefaDROXiL [Duricef] 500 mg PO Q12HR #10 cap 09/07/23 [Rx] Follow up Appointment(s)/Referral(s): Jovon Urrutia DO [Doctor of Osteopathic Medicine] - 10 Days Activity/Diet/Wound Care/Special Instructions: Spine Discharge and Recovery Instructions Date of Surgery: 09/06/2023 Diagnosis: Cervical spondylosis with HNP Procedure: C5-C7 ACDF Medications: See medication list All medication refills should be obtained through your primary care doctor or your clinic spine surgeon. Please discuss prescription refills at your follow up appointment. Do not call the hospital for medication refills. Activity: Encourage ambulation with assist of walker, Up and about 6-8x daily PT/OT daily work on balance, strength and mobility Up in chair with all meals Shower daily Brace: Use brace when up and about, do not wear in bed or shower Dressing: Leave your dressing in place for a total of 3 days post operatively. Then you may remove your dressing and leave open to air. Keep the area clean and if not able to keep area clean, then cover with sterile gauze and tape. Showering: You may shower 3 days after your procedure allowing soap and water to run over incision. Do not scrub. Do not soak. Blot dry. Follow up: Please confirm a follow up appointment with your surgeon 2 weeks post operatively. Please make an appointment to follow up with your PCP in 1-2 weeks after surgery for evaluation 3 phase, 3-week plan POST OP WEEKS 1-3 1. Lifting/carrying/pushing/pulling limited to less than 5 pounds. 2. Do not sit for longer than 15 minutes at one time. Get up and walk around. Prolonged sitting is NOT advised. If you lay down, see if you can tolerate laying down on you front (belly side) 3. Walk for periods of 15 minutes = 1 mile but no longer; do it multiple times times each day. 4. Ice your low back after activity. POST OP WEEKS 3-6 1. Lifting limited to less than 20 pounds. 2. Do not sit for longer than 30 minutes at a time. Frequently change positions. Use a sit-to stand workstation or take frequent breaks from sitting i f you have returned to work. 3. Walk for 30 minutes each day. If possible, do these three or more times a day POST OP WEEKS 6+ At your 6-week appointment we will give you a physical therapy referral to focus on a core stabilization and strengthening program. You should also work on leg & buttock strengthening, hamstring & quadriceps stretching, and continue a low impact aerobic activity program such as swimming, walking, or riding a stationary bicycle. During the initial 6 weeks after your surgery, you are at the highest risk of re-injuring your spine. You should generally avoid BLTs (bending, lifting and twisting combination motions) and follow the above guidelines to reduce the chance of reinjury. You can anticipate post op appointments in our office at approximately 3 weeks and 6 weeks after your surgery. INCISION CARE: If your incision is not draining you do NOT need to cover it with a dressing. Keep your incision clean, dry and intact. In most cases, we apply skin glue, noelle or sutures to the incision at the time of surgery. This will be like a crust or have the appearance of a scab and will fall off in time on its own. The stitches or noelle need to be removed at 3 weeks post op appointment. You may begin to shower 3 days after surgery (this allows the glue to lopez well). However, please avoid scrubbing the incision site or peeling off any of the skin glue. This will ensure optimal healing of your incision. Also, during this time avoid soaking the incision area in water - this includes swimming pools, hot tubs or baths. No ointments, lotions or oils on the incision until your surgeon allows. Leave noelle, sutures or glue in place. Neurological dysfunction that comes on suddenly can also be a sign of a stroke. Below some common symptoms of a stroke are listed: B - balance difficulty such as sudden onset walking or leaning to one side - NEW E - eye problem such as sudden double vision or trouble seeing on one side - NEW F - Facial weakness or numbness on one side - NEW A - Arm or leg weakness or numbness on one side - NEW S - Slurred speech or difficulty with word finding - NEW T - Time is BRAIN! Call 911 as soon as you recognize these symptoms Diet: Consume a regular diet rich in vegetables and lean protein such as chicken or fish. You should consume in a ratio of approximately 20% fats|40% carbohydrates|40%protein. Vegetables, sweet potatoes, brown rice or quinoa are examples of good carbohydrates. Chips, white bread, cookies and sweets/sugar are examples of bad carbohydrates. Limit your bad carbs, go wild with good carbs. "Life's Simple 7" Guidelines as per [place] [employer] These will help you reclaim your life after surgery and cork insulator helper in your recovery, keeping in mind your restrictions. (1) Get Active. Physical activity can help people lose weight, control high blood pressure and cholesterol, feel emotionally better, and sleep better. (2) Control Cholesterol. Avoid a diet high in saturated fat, trans fat, & cholesterol. Limit whole milk & cream, ice cream, butter, egg yolks, processed meats (like sausage and hot dogs), and fatty meats. Choose healthy foods that are low in saturated fat, trans fat and cholesterol which include: Fruits and vegetables, fiber rich grain products (like whole grain pasta and brown rice), lean meat such as chicken, fish, nuts, seeds, and legumes. (3) Eat Better. Eat small portions. Shop at the grocery with a list and do not stray from it. Tips for a healthy diet include: Limit sodium intake to less than 1500mg daily, avoid prepackaged, processed, and fast foods, choose a diet rich in fruits, vegetables, and whole grain, high fiber foods, and limit saturated & cholesterol in your diet. (4) Manage Blood Pressure. If you have high blood pressure, you should have a cuff at home so that you can check your blood pressure regularly. Be sure you have a good cuff. An arm one is generally better than a wrist one. Bring the cuff to a doctor's appointment to validate that the measurements that your cuff are taking are accurate. Take your blood pressure twice daily when you are sitting down and relaxing. Record the numbers in a log and bring this log with you to your doctors' appointments. (5) Lose Weight if your BMI is above 25. A healthy BMI is between 19-25. To calculate Your BMI, you may use a Standard BMI Calculator on the NIH BMI website: <www.nhlbi.nih.gov/guidelines/obesity/BMI/bmicalc.htm>. Weigh oneself daily. If you are overweight, set a goal to lose weight. A pound a week loss if needed is a good target. (6) Reduce Blood Sugar. Limit foods and liquids with "added sugars." (Added sugars include sucrose, fructose, glucose, maltose, dextrose, high fructose corn syrup, corn syrup, concentrated fruit juice and honey). (7) Stop Smoking. If you smoke, quitting smoking is one of the best things that you can do for your health. Smoking increases your risk of heart attack, stroke, and peripheral vascular disease, which is a build-up of plaque in your arteries. Please discard all the cigarettes and lighters in your house. Have a plan for what you will do when you have the urge to smoke. Direct and second- hand smoke shortens your life as well as the lives of your family, friends and others around you. For your health and the health of those around you, please consider quitting! Proper Bending Body Mechanics: Maintain a wide stance with one foot slightly in front of the other. Keep your back straight. Bend utilizing the strength in your hips and knees. Do not bend at the waist. Maintain the lifted object at your waist-level close to your body. Avoid lifting weight that causes immediately pain or pain anywhere in the body afterwards. Smoking/Nicotine If there was ever one thing that you could do to increase your overall health, decrease your risk of cardiovascular problems by about 39% the second you make the choice, it is to STOP SMOKING. Your body's most instant gratification is the second you stop smoking. We have all heard the studies, read the articles but it is true, smoking is extremely bad for your overall health, and moreover it is detrimental to your bone health. Nicotine, IN ANY FORM, kills bone cells, prevents your body from healing fractures, and significantly prolongs healing after surgery. In spine surgery specifically, it increases your risk of not healing your bones to create a fusion and increases your risk of having a revision surgery due to this up to 60%. I know it is hard. I know it feels impossible. But there are ways. Take control of your life. We are here to help you through it. And when you are ready, ask us and we can direct you to help if you desire. Use the START Plan to Quit Smoking (please visit the Helpguide.org website listed below for more information): S = Set a quit date. Choose a date within the next 2 weeks, so you have enough time to prepare without losing your motivation to quit. If you mainly smoke at work, quit on the weekend, so you have a few days to adjust to the change. T = Tell family, friends, and co-workers that you plan to quit. Let your friends and family in on your plan to quit smoking and tell them you need their support and encouragement to stop. Look for a quit gloria who wants to stop smoking as well. You can help each other get through the rough times. A = Anticipate and plan for the challenges you'll face while quitting. Most people who begin smoking again do so within the first 3 months. You can help yourself make it through by preparing ahead for common challenges, such as nicotine withdrawal and cigarette cravings. R = Remove cigarettes and other tobacco products from your home, car, and work. Throw away all your cigarettes (no emergency pack!), lighters, ashtrays, and matches. Wash your clothes and freshen up anything that smells like smoke. Shampoo your car, clean your drapes and carpet, and steam your furniture. T = Talk to your doctor about getting help to quit. Your doctor can prescribe medication to help with withdrawal and suggest other alternatives. If you can't see a doctor, you can get many products over the counter at your local pharmacy or grocery store, including the nicotine patch, nicotine lozenges, and nicotine gum. Resources for Quitting Smoking: <https://www.[place].gov/documents/[facility]/Quit_Tobacco_Resources_for_patients_313 480_7.pdf> Supplementation: Take recommended dosages of Vitamin D and Calcium to help fortify your bones and help them to heal. See your health maintenance packet for dosages and recommended levels. DVT/VTE prophylaxis: You will be given compression stockings from the hospital. Wear these daily for the first two weeks after surgery. You may take them off at night. You may be prescribed a medication to help thin your blood. Take this as directed. If you are not prescribed this medication, early and frequent ambulation has been shown to be the best prophylaxis to deep vein thrombosis and sequelae related to this event. Discharge Disposition: HOME SELF-CARE
--- NOTE | 2023-09-07 15:53 | P.PN ---
Subjective Progress Note Date: 09/07/23 (delayed charting seen at 0915) Patient is a 73-year-old male with a past medical history of hypertension, dyslipidemia, BPH, impaired fasting glucose (A1c 5.8 07/05/2023) for ACDF. Patient tolerated the procedure well without any immediate postoperative complications. Patient seen and examined at bedside. Doing well. Pain controlled. No other complaints currently. Denies any chest pain, shortness breath, lightheadedness, dizziness Vital signs reviewed General: nontoxic, no distress, appears at stated age, hard cervical collar in place Cardiovascular: S1S2 reg, no murmur, no edema Lungs: clear to auscultation bilateral, no rhonchi, no rales, no wheeze, no accessory muscle use Ext: no gross muscle atrophy, no contractures Neuro: CN II-XII grossly intact, No focal neuro deficits Psych: Alert, oriented, appropriate affect Assessment/Plan: Patient is a 73-year-old male status post C5-6 and C6-7 ACDF. Hypertension -Lisinopril 20 mg daily Dyslipidemia -Pravachol 40 mg at night BPH -Continue outpatient follow-up with urology Obesity with BMI of 42.9 -Outpatient structured weight loss Impaired fasting glucose -a.m. fasting blood sugar 124 Medically optimized for discharge at the discretion of orthospine services. Home medications addressed on discharge med rec. [facility]. [facility]: None Data Review: Labs reviewed from today include CBC and basic metabolic profile which are rem arkable for a fasting blood sugar of 124 and hemoglobin of 13.7. This dictation was prepared using [employer] voice recognition software. Though every attempt is made to correct errors during dictation some may still exist. Objective - Vital Signs Vital signs: Vital Signs Temp 99.4 F 09/07/23 07:39 Pulse 86 09/07/23 07:39 Resp 18 09/07/23 07:39 BP 116/68 09/07/23 07:39 Pulse Ox 96 09/07/23 08:19 FiO2 Intake & Output 09/06/23 09/07/23 09/07/23 18:59 06:59 18:59 Intake Total 1600 Output Total 375 605 150 Balance 1225 -605 -150 Weight 139.6 kg Intake: IV 1600 Output: Drainage 5 Neck 5 Urine 350 600 150 Estimated Blood Loss 25 Other: Voiding Method Indwelling Catheter # Voids 0 - Labs CBC & Chem 7: 09/07/23 07:49 09/07/23 07:49 Labs: Abnormal Lab Results - Last 24 Hours (Table) 09/07/23 09/07/23 Range/Units 07:49 07:49 WBC 13.7 H (3.8-10.6) k/uL Glucose 124 H (74-99) mg/dL
== END 2023-09-07 15:11 | disposition home or self-care (01) ==
LOC: OR 10:17 → 4SSUR 14:48 → OR 09-07 15:11
PROVIDERS: ATTEND Orthopaedic Surgery
DX: M50.023 Cervical disc disorder at C6-C7 level with myelopathy (principal); M50.123 Cervical disc disorder at C6-C7 level with radiculopathy; M48.02 Spinal stenosis, cervical region; M25.78 Osteophyte, vertebrae; I10 Essential (primary) hypertension; E78.5 Hyperlipidemia, unspecified; Z90.49 Acquired absence of other specified parts of digestive tract; Z98.890 Other specified postprocedural states; Z87.891 Personal history of nicotine dependence; Z80.3 Family history of malignant neoplasm of breast; Z79.899 Other long term (current) drug therapy
CPT/HCPCS: 94760; 97161; 80048; 85027; 72040; 72125; 22551; 22552; 22853 ×2; 20930; 20937; 22845; C1713; J1100; J0690 ×2; J2405; J1170 ×2